=== PATIENT | male | born 1955 | race Caucasian/White ===

== ENCOUNTER 2023-04-04 12:38 | Inpatient (IN) | payer OTHER, SELFPAY ==
[2023-04-04] VITALS (11 sets, daily range): BP systolic 100–131; BP diastolic 59–77; PULSE 62–86; RESP 16–20; TEMP 37.2–38.2; O2SAT 90–97; BMI 19.3
--- NOTE | 2023-04-04 14:00 | CRLHL7_ITS ---
For Patients: As a result of the Cures Act, medical imaging exams and procedure reports are released immediately into your electronic medical record. You may view this report before your referring provider. If you have questions, please contact your health care provider. INDICATION: Fall. TECHNIQUE: Pelvis and right hip 3 views. COMPARISON: None. FINDINGS: There is an acute minimally displaced fracture of the right femoral neck. The femoral head remains normally aligned with the acetabulum. The hip joint spaces are preserved. The sacroiliac joints are normal in appearance. Soft tissues are unremarkable. IMPRESSION: Acute minimally displaced fracture of the right femoral neck. Dictated by Clemencia Cardenas MD @ 04/04/2023 4:01:36 PM (Electronically Signed)
--- NOTE | 2023-04-04 14:35 | ED.GENADULT ---
HPI - General Adult General Date Seen: 04/04/23 Chief complaint: Extremity Pain/Injury, Lower Stated complaint: Fall, R hip injury Time Seen by Provider: 04/04/23 14:23 Source: patient Mode of arrival: wheelchair Limitations: no limitations History of Present Illness HPI narrative: Patient is a 67-year-old male who says he was walking outside and slipped on some mud today landing hard on his right hip. He had to crawl back home to call a friend take him in but he did come in by private car. Complains of pain in the right hip and inability to bear weight. He denies hitting his head. No neck or back trauma. Denies chest or abdominal pain. He has a scrape on his right elbow but says he is moving it without difficulty, no significant swelling. He does not take any anticoagulation, last ate at about 9:00 a.m. this morning. Medications include chlorthalidone and potassium as well as some xmey-hsv-lyrjefk supplements. He denies allergies aside from not liking way codeine makes him feel. He does not smoke or drink. Related Data Allergies Allergy/AdvReac Type Severity Reaction Status Date / Time codeine Allergy Unknown Verified 04/04/23 13:16 Review of Systems Status of ROS: Reports: 10 or more systems reviewed and unremarkable except as noted in History and below Exam Narrative: Exam Narrative: Vital signs as noted above. In general, an alert, well-appearing patient. Head: Normocephalic, atraumatic. Eyes: Pupils are equal reactive. Extraocular movements are full. Conjunctivae are normal. ENT: Mucous membranes are moist. Throat is normal. Neck: Supple without lymphadenopathy. Heart: Regular rate and rhythm. No murmur or rub. Lungs: Clear bilaterally. No increased work of breathing, crackles or wheezes. Abdomen: Soft and nontender. No organomegaly. Extremities: Well perfused. No edema. No calf tenderness. Pulses intact. No shortening or rotation. Range of motion not tested. Small bruise and abrasion noted right elbow, no bony tenderness or edema, full range of motion. Neurologic: Patient is alert and oriented to person and place. Speech is fluent. Face is symmetric. Moves all extremities equally. Affect: Normal. Skin: Warm and dry. Well perfused. Const: Vital Signs, click to edit/add: Vital Signs - 24 hr 04/04/23 13:14 04/04/23 14:47 Temperature 98.9 F Pulse Rate [Right Pulse Oximeter] 62 86 Respiratory Rate 20 18 Blood Pressure [Ri ght Upper Arm] 131/77 124/75 Pulse Oximetry 97 96 Oxygen Delivery Me thod Room Air Room Air Documenting provider has reviewed patient's vital signs: yes Course Course Hospital Course: Patient had x-rays of the right hip which by my review show a femoral neck fracture. I have ordered labs, EKG in anticipation of OR. These are pending. Will give some morphine for pain as he is complaining quite a bit of pain at this time. Final radiology read as follows: Patient discussed with Orthopedics. Plan will be admission to the hospital for surgery tomorrow. His metabolic panel has returned and is notable for potassium of 3.5, CO2 of 33, glucose 124. AST is 40, ALT 34. LFTs otherwise normal. Cbc pending. Coags normal. EKG by my review showed a normal sinus rhythm, ventricular rate of 82 beats per minute. No acute changes. Vital Signs Vital signs: Initial Vital Signs Temperature 98.9 F 04/04/23 13:14 Temperature Source Temporal Artery Scan 04/04/23 13:14 Pulse Rate 62 04/04/23 13:14 Pulse Rhythm Regular 04/04/23 13:14 Pulse Strength 3+ Normal 04/04/23 13:14 Respiratory Rate 20 04/04/23 13:14 Blood Pressure 131/77 04/04/23 13:14 Blood Pressure Mean 95 04/04/23 13:14 Blood Pressure Position Sitting 04/04/23 13:14 Pulse Oximetry 97 04/04/23 13:14 Oxygen Delivery Method Room Air 04/04/23 13:14 Vital Signs Temperature 98.9 F 04/04/23 13:14 Pulse Rate 62 04/04/23 13:14 Respiratory Rate 20 04/04/23 13:14 Blood Pressure 131/77 04/04/23 13:14 Pulse Oximetry 97 04/04/23 13:14 Oxygen Delivery Method Room Air 04/04/23 13:14 Temperature 98.9 F 04/04/23 13:14 Pulse Rate 86 04/04/23 14:47 Respiratory Rate 18 04/04/23 14:47 Blood Pressure 124/75 04/04/23 14:47 Pulse Oximetry 96 04/04/23 14:47 Oxygen Delivery Method Room Air 04/04/23 14:47 Medical Decision Making Lab Data Labs: Lab Results 04/04/23 Range/Units 14:40 INR 1.07 (0.91-1.10) APTT 31 (23-33) Seconds Sodium 138 (135-149) mmol/L Potassium 3.5 L (3.6-5.1) mmol/L Chloride 97 (96-114) mmol/L Carbon Dioxide 33 H (20-32) mmol/L BUN 19 (7-30) mg/dL Creatinine 0.9 (0.5-1.5) mg/dL Estimated Creat Clear 67.09 Estimated GFR 92 ml/min Glucose 124 H (60-115) mg/dL Calcium 10.3 (8.4-10.6) mg/dL Total Bilirubin 1.1 (0.1-1.5) mg/dL Direct Bilirubin 0.2 (0.0-0.5) mg/dL AST 40 H (12-35) U/L ALT 34 (4-50) U/L Alkaline Phosphatase 50 (40-150) U/L Total Protein 8.1 (6.0-8.3) g/dL Albumin 5.2 H (3.3-5.0) g/dL Discharge Plan Discharge Clinical Impression: Closed fracture of right hip Patient Disposition: Admitted As Inpatient Condition: Stable
[2023-04-04] MEDS: ONDANSETRON 2 MG/ML inj 4 MG IVP (14:40)
[2023-04-04] MEDS: MORPHINE 4 MG/ML INJ IVP ×2 (14:41→16:18)
[2023-04-04 14:52] LABS: Hematocrit 43.4 % (37.0-53.0); Hemoglobin* 14.7 gm/dL (13.5-17.5); Immature Granulocytes Pct Auto 1.4 %; Lymphocytes Percent Auto 5.9 % (20-44); Mean Corpuscular HGB Conc 34 gm/dL (32-36); Mean Corpuscular Hemoglobin 30 pg (26-34); Mean Corpuscular Volume 90 fL (80-100); Monocytes Percent Auto 2.2 % (0.0-11.0); Neutrophils Percent Auto 90.5 % (42.0-72.0); Platelet Count* 146 K/uL (140-440); RDW Coefficient of Variation % 12.5 % (11.5-15.5); Red Blood Count 4.85 m/uL (4.30-5.90); White Blood Count* 11.74 K/uL (4.50-11.00)
[2023-04-04 15:03] LABS: Chloride* 97 mmol/L (96-114)
[2023-04-04 15:04] LABS: Albumin* 5.2 g/dL (3.3-5.0); Potassium* 3.5 mmol/L (3.6-5.1); Sodium* 138 mmol/L (135-149)
[2023-04-04 15:07] LABS: Alanine Aminotransferase* 34 U/L (4-50); Alkaline Phosphatase* 50 U/L (40-150); Aspartate Amino Transferase* 40 U/L (12-35); Bilirubin Direct* 0.2 mg/dL (0.0-0.5); Bilirubin Total* 1.1 mg/dL (0.1-1.5); Blood Urea Nitrogen* 19 mg/dL (7-30); Calcium* 10.3 mg/dL (8.4-10.6); Carbon Dioxide* 33 mmol/L (20-32); Creatinine* 0.9 mg/dL (0.5-1.5); Est. Creatinine Clearance* 67.09; Estimated Glomerular Filt Rate 92 ml/min; Glucose* 124 mg/dL (60-115); Total Protein* 8.1 g/dL (6.0-8.3)
[2023-04-04 15:27] LABS: INR 1.07 (0.91-1.10); Partial Thromboplastin Time* 31 Seconds (23-33); Prothrombin Time 14.6 Seconds
--- NOTE | 2023-04-04 16:00 | ED.NURSE ---
report called, pt will transfer to room 257 via cart with belongings.
[2023-04-04 16:10] LABS: Slide Review Reflex Yes
[2023-04-04 16:11] LABS: Slide Review Acceptable Review (Acceptable)
--- NOTE | 2023-04-04 17:37 | P.IMHP_ITS ---
Hospitalist- H&P: HPI History of Present Illness Time Seen by Provider: 17:35 Date Seen: 04/04/23 Chief complaint: Fall, R hip injury Narrative: Dave Rowe is a 67 year old male with h/o HTN who slipped today landing on his right hip on the cement sidewalk. He put in a large landscaping area on Tuesday. He went out this morning to check on it and slipped on a patch of mud from recent rains. Fell onto cement and was unable to get up or walk on it. He crawled to house, but couldn't get up even one step out front of his house. Neighbor and mailman helped him into house, but he was still unable to move. So, his friend brought him to the ER. He felt he was shivering and freezing in ER. He denies any recent illness and has been in his usual state of health. Review of Systems Status of ROS: Reports: 10 or more systems reviewed and unremarkable except as noted in History and below Narrative: Stays active, but doesn't do much that is very intense due to h/o back pain. Const: Reports: chills Cardio: Denies: chest pain or shortness of breath with exertion Resp: Denies: shortness of breath GI: Denies: abdominal pain or blood in stool : Reports: other (occasional small amounts of urinary incontinence) Musculo: Reports: back pain [facility] Medical History (Updated 04/04/23 @ 19:14 by Sharon Johnston MD) Hypertension ?I10 - Essential (primary) hypertension (ICD-10) Low back pain ?M54.50 - Low back pain, unspecified (ICD-10) C. difficile colitis (~2013) ?A04.72 - Enterocolitis due to Clostridium difficile, not specified as recurrent (ICD-10) Colon polyps ?K63.5 - Polyp of colon (ICD-10) Tinnitus ?H93.19 - Tinnitus, unspecified ear (ICD-10) Sensorineural hearing loss (SNHL) of both ears ?H90.3 - Sensorineural hearing loss, bilateral (ICD-10) Impaired fasting glucose ?R73.01 - Impaired fasting glucose (ICD-10) BPH w urinary obs/LUTS ?N40.1 - Benign prostatic hyperplasia with lower urinary tract symptoms (ICD- 10) ?N13.8 - Other obstructive and reflux uropathy (ICD-10) Surgical History (Updated 04/04/23 @ 16:53 by Sharon Johnston MD) Hx of appendectomy (~1975) ?Z90.49 - Acquired absence of other specified parts of digestive tract (ICD- 10) H/O colonoscopy ?Z98.890 - Other specified postprocedural states (ICD-10) Family History (Updated 04/04/23 @ 16:56 by Sharon Johnston MD) Mother Polymyalgia rheumatica Arthritis Cataract Brother In good health Brother In good health Father Alcohol dependence Tobacco use Social History (Updated 04/04/23 @ 17:48 by Sharon Johnston MD) Narrative: Smoked an average of 2.5 packs per day for 7 years from 1969 to 1976. Never used smokeless tobacco. Denies alcohol use. Denies recreational drug use. 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 What is your current living situation: I presently have a place to live Problems where you live: no known problems Problems where you live details: none In the past 12 months, utilities in danger of being shut off: no In the past 12 mos, have been you worried that your food would run out before you had money to buy more?: never true In the past 12 mos, the food you bought just didn't last and you didn't have money to buy more?: never true Highest level of school completed/degree received: Bachelor's degree Smoking Status: Former smoker How often do you have a drink containing alcohol: monthly or less Alcohol type: beer How many standard drinks containing alcohol do you have on a typical day: 1 or 2 How often do you have six or more drinks on one occasion: Never AUDIT-C Alcohol total score: 1 Non-prescribed substance use: denies use Caffeine: Yes How often does anyone, including family, friends and others, physically hurt you : How often does anyone, including family, friends and others, insult or talk down to you: How often does anyone, including family, friends and others, threaten you with harm: How often does anyone, including family, friends and others, scream or curse at you: service: No Meds Home Medications and Allergies Home Medications Medication Instructions Recorded Confirmed Type gmfdqgs-zrvpututj-tlalcm-ixwtc-cphdhsbm-qpinb-invertase 1 cap PO TIDWMEAL 04/04/23 04/04/23 History 220 mg capsule chlorthalidone 25 mg tablet 25 mg PO DAILY 04/04/23 04/04/23 History glucosamine-chondroitin 500 mg-400 2 tab PO DAILY 04/04/23 04/04/23 History mg tablet (Cidaflex) potassium chloride 10 mEq 10 meq PO DAILY 04/04/23 04/04/23 History tablet,extended release(part/cryst) Allergies Allergy/AdvReac Type Severity Reaction Status Date / Time codeine Allergy Unknown Hallucinati Verified 04/04/23 16:50 ng cat dander Allergy Verified 04/04/23 16:50 mold Allergy Verified 04/04/23 16:50 pollen extracts Allergy Verified 04/04/23 16:50 tree nut AdvReac Mild Diarrhea Verified 04/04/23 16:50 Exam Narrative: Exam Narrative: General: [No acute distress.] [Awake alert oriented x3.] Tall and thin. HEENT: [Normocephalic atraumatic], [pupils equally round and reactive to light and accommodation]. Oropharynx [clear]. Mucous membranes are [moist]. [No cervical lymphadenopathy, thyromegaly or carotid bruits]. No JVD. Cardiovascular: [Regular rate and rhythm]. [No murmurs, gallops, or rubs]. Chest: No increased work of breathing. [Clear to auscultation bilaterally. No crackles or wheezes]. Abdomen: Bowel sounds [present]. [Soft, nondistended, nontender.] [No hepatosplenomegaly or masses]. Extremities: Mild shortening and internal rotation of RLE. [No] edema, [no cyanosis or clubbing]. Skin: [No jaundice,] [no pallor,] [no rashes]. Const: Vital Signs, click to edit/add: Vital Signs - 24 hr 04/04/23 13:14 04/04/23 14:47 04/04/23 15:05 Temperature 98.9 F Pulse Rate 79 Pulse Rate [Left P ulse Oximeter] Pulse Rate [Right Pulse Oximeter] 62 86 Respiratory Rate 20 18 Blood Pressure 125/76 Blood Pressure [Ri ght Arm] Blood Pressure [Ri ght Upper Arm] 131/77 124/75 Pulse Oximetry 97 96 92 Oxygen Delivery Me thod Room Air Room Air 04/04/23 15:06 04/04/23 15:30 04/04/23 15:32 Temperature Pulse Rate 82 79 78 Pulse Rate [Left P ulse Oximeter] Pulse Rate [Right Pulse Oximeter] Respiratory Rate Blood Pressure 130/73 Blood Pressure [Ri ght Arm] Blood Pressure [Ri ght Upper Arm] Pulse Oximetry 90 92 91 Oxygen Delivery Me thod 04/04/23 16:00 04/04/23 16:26 04/04/23 16:26 Temperature 100.8 F H Pulse Rate 77 Pulse Rate [Left P ulse Oximeter] 79 Pulse Rate [Right Pulse Oximeter] Respiratory Rate 16 16 Blood Pressure Blood Pressure [Ri ght Arm] 120/68 Blood Pressure [Ri ght Upper Arm] Pulse Oximetry 92 91 91 Oxygen Delivery Me thod Room Air Room Air Documenting provider has reviewed patient's vital signs: yes Hospitalist - H&P: Result Labs Labs: Short CBC 04/04/23 Range/Units 14:40 WBC 11.74 H (4.50-11.00) K/uL Hgb 14.7 (13.5-17.5) gm/dL Hct 43.4 (37.0-53.0) % Plt Count 146 (140-440) K/uL BMP 04/04/23 14:40 Sodium 138 Potassium 3.5 L Chloride 97 Carbon Dioxide 33 H BUN 19 Creatinine 0.9 Glucose 124 H Calcium 10.3 Liver Function 04/04/23 Range/Units 14:40 Total Bilirubin 1.1 (0.1-1.5) mg/dL Direct Bilirubin 0.2 (0.0-0.5) mg/dL AST 40 H (12-35) U/L ALT 34 (4-50) U/L Alkaline Phosphatase 50 (40-150) U/L Albumin 5.2 H (3.3-5.0) g/dL Ordering Physician: Ariane Yan M.D. Date of Service: 04/04/23 Procedure(s): XR hip RT min 2V Accession Number(s): [id number] cc: Ariane Yan M.D.; Campbell Escoto M.D.~ For Patients: As a result of the Cures Act, medical imaging exams and procedure reports are released immediately into your electronic medical record. You may view this report before your referring provider. If you have questions, please contact your health care provider. INDICATION: Fall. TECHNIQUE: Pelvis and right hip 3 views. COMPARISON: None. FINDINGS: There is an acute minimally displaced fracture of the right femoral neck. The femoral head remains normally aligned with the acetabulum. The hip joint spaces are preserved. The sacroiliac joints are normal in appearance. Soft tissues are unremarkable. IMPRESSION: Acute minimally displaced fracture of the right femoral neck. Dictated by Clemencia Cardenas MD @ 04/04/2023 4:01:36 PM (Electronically Signed) Assessment and Plan Assessment and plan (1) Closed fracture of right hip: Problem comment: - minimally displaced fracture of the right femoral neck - ortho aware and surgery is planned for tomorrow early afternoon - NPO after MN. He is overall healthy with Mets greater than 4. No further workup is needed prior to surgery. Status: Acute (2) Hypokalemia: Problem comment: Secondary to chlorthalidone use. Patient is also on oral potassium supplementation daily. Continue this and given extra dose this evening. Recheck in morning. Status: Acute (3) Hypertension: Problem comment: Continue chlorthalidone Status: Chronic (4) C. difficile colitis: Problem comment: - 2014. Has not had a recurrence, but notes BMs have rarely been normal since. - patient will be getting antibiotics intraoperatively. Start lactobacillus t.i.d.. Status: Inactive (5) BPH w urinary obs/LUTS: Problem comment: - occasional urinary incontinence - monitor for urinary retention with opioids Status: Chronic Plan Start pain medication and senna for bowel regimen with opioids. Hold off on VTE prophylaxis until after surgery.
[2023-04-04] MEDS: POTASSIUM BICARB 25 MEQ EFFERVESCENT TAB PO (19:44)
[2023-04-04] MEDS: LACTOBACILLUS ACIDOPHILUS 1 TABLET 1 TAB PO (19:45)
[2023-04-04] MEDS: MORPHINE 2 MG/ML inj 4 MG IVP ×2 (19:46→23:20)
[2023-04-04] MEDS: SODIUM CHLORIDE 0.9 % (FLUSH) 10 ML SYRINGE 5 ML IVF (19:47)
--- NOTE | 2023-04-04 22:51 | PC.NURSE ---
End of Shift: Pt admitted to Med Surg via ED d/t fall outside at home resulting in right hip fracture. Surgery scheduled for tomorrow at 1330. Pt reports pain between 5-6/10, well-controlled with IV morphine and ice pack. Whitman catheter placed d/t pt's hx of difficulty voiding r/t previous enlarged prostate per pt. MD order to place whitman catheter, placement successful, pt tolerated well with some discomfort. Whitman patent and draining well. Pt NWB d/t hip fracture. Tolerating regular diet well, NPO ordered after midnight.
[2023-04-04] MEDS: ACETAMINOPHEN 325 MG TABLET 650 MG PO (23:19)
[2023-04-05] VITALS (23 sets, daily range): BP systolic 95–117; BP diastolic 54–82; PULSE 65–88; RESP 16–18; TEMP 36.8–38.7; O2SAT 91–100
[2023-04-05] MEDS: MORPHINE 2 MG/ML inj 4 MG IVP ×3 (02:45→10:34)
[2023-04-05] MEDS: SODIUM CHLORIDE 0.9 % (FLUSH) 10 ML SYRINGE 5 ML IVF ×3 (02:46→08:58)
--- NOTE | 2023-04-05 05:54 | PC.NURSE ---
Shift note: Pt is on bedrest. Pain level has been rated at 6 maximum. Icepack and PRN medication given. Alert and oriented, vitally stable. O2 desaturated to 88 when sleeping. Pt has been maintained on NPO at 0000 for possible surgery today.
[2023-04-05 06:39] LABS: Basophils Absolute Auto 0.01 K/uL (0.00-0.30); Basophils Percent Auto 0.1 % (0.0-3.0); Eosinophils Absolute Auto 0.08 K/uL (0.00-0.50); Eosinophils Percent Auto 0.8 % (0.0-7.0); Immature Granulocytes Abs Auto 0.04 K/uL (0.00-0.30); Immature Granulocytes Pct Auto 0.4 %; Lymphocytes Percent Auto 7.7 % (20-44); Mean Corpuscular HGB Conc 34 gm/dL (32-36); Mean Corpuscular Hemoglobin 31 pg (26-34); Mean Corpuscular Volume 89 fL (80-100); Monocytes Percent Auto 2.7 % (0.0-11.0); Neutrophils Percent Auto 88.3 % (42.0-72.0); Platelet Count* 108 K/uL (140-440); RDW Coefficient of Variation % 12.7 % (11.5-15.5); Red Blood Count 4.25 m/uL (4.30-5.90); White Blood Count* 9.52 K/uL (4.50-11.00)
[2023-04-05 06:43] LABS: Slide Review Reflex No
[2023-04-05 06:52] LABS: Chloride* 98 mmol/L (96-114); Potassium* 3.5 mmol/L (3.6-5.1); Sodium* 136 mmol/L (135-149)
[2023-04-05 06:55] LABS: Blood Urea Nitrogen* 20 mg/dL (7-30); Carbon Dioxide* 35 mmol/L (20-32); Est. Creatinine Clearance* 67.09; Estimated Glomerular Filt Rate 81 ml/min
[2023-04-05 06:56] LABS: Calcium* 9.1 mg/dL (8.4-10.6); Glucose* 117 mg/dL (60-115)
[2023-04-05] MEDS: ACETAMINOPHEN 325 MG TABLET 650 MG PO ×2 (09:06→17:49)
--- NOTE | 2023-04-05 09:06 | CRLHL7_ITS ---
For Patients: As a result of the Cures Act, medical imaging exams and procedure reports are released immediately into your electronic medical record. You may view this report before your referring provider. If you have questions, please contact your health care provider. INDICATION: FEVER TECHNIQUE: Chest 1 view COMPARISON: None FINDINGS: Cardiac silhouette is enlarged. There is mild tortuosity of the descending thoracic aorta. No infiltrate or edema. No effusion or pneumothorax. IMPRESSION: No acute findings. Dictated by Ye Stauffer MD @ 04/05/2023 10:05:28 AM (Electronically Signed)
[2023-04-05] MEDS: POTASSIUM CHLORIDE 10 MEQ/100 ML PIGGYBACK 100 MEQ IVPB ×2 (09:30→10:36)
--- NOTE | 2023-04-05 10:01 | P.IMPN_ITS ---
Progress Note: A&P Assessment and plan (1) Closed fracture of right hip: Problem details: - minimally displaced fracture of the right femoral neck - ortho aware and surgery is planned for 04/05 - Dave is overall healthy with Mets greater than 4, no history of anesthetic or surgical complications Status: Acute (2) Fever: Problem details: - noted 04/04 and 04/05; reassuring exam, CXR and CBC, mild elevated in pro- calcitonin - ddx: fracture, viral illness, UTI vs other bacterial illness - UA pending, Blood cultures obtained, continue to follow - anesthesia aware Status: Acute (3) Hypokalemia: Problem details: - likely iatrogenic (on Chlorthalidone) - replace and follow Status: Acute (4) Hypertension: Problem details: - continue Chlorthalidone with holding parameters given lower BPs Status: Chronic (5) C. difficile colitis: Problem details: - history of this in 2013. Has not had a recurrence, but notes BMs have rarely been normal since - patient will be getting antibiotics intraoperatively. Start lactobacillus TID Status: Inactive Plan - per above Subjective Date Seen: 04/05/23 Interval history: Bubba had a fever this morning, no focal symptoms or concerns for hospitalist team. He is having surgery with Dr. Pabon today. No history of surgical or anesthetic complications. Exam Narrative: Exam Narrative: GEN: Alert and oriented, sitting up in bed and speaking in full sentences. Nontoxic HEENT: EOMIs bilaterally, no scleral icterus CV: RRR, No concerning murmurs, no carotid bruits R: LCTA bilaterally without concerning wheezing or rales. Air movement adequate Ab: soft, nontender, tolerates exam well Skin: No concerning skin lesions or rashes on exposed skin Neuro: Nonfocal Psych: Appropriate Const: Vital Signs, click to edit/add: Vital Signs - 24 hr 04/04/23 13:14 04/04/23 14:47 04/04/23 15:05 Temperature 98.9 F Pulse Rate 79 Pulse Rate [Left P ulse Oximeter] Pulse Rate [Right Pulse Oximeter] 62 86 Respiratory Rate 20 18 Blood Pressure 125/76 Blood Pressure [Ri ght Arm] Blood Pressure [Ri ght Upper Arm] 131/77 124/75 Pulse Oximetry 97 96 92 Oxygen Delivery Me thod Room Air Room Air 04/04/23 15:06 04/04/23 15:30 04/04/23 15:32 Temperature Pulse Rate 82 79 78 Pulse Rate [Left P ulse Oximeter] Pulse Rate [Right Pulse Oximeter] Respiratory Rate Blood Pressure 130/73 Blood Pressure [Ri ght Arm] Blood Pressure [Ri ght Upper Arm] Pulse Oximetry 90 92 91 Oxygen Delivery Me thod 04/04/23 16:00 04/04/23 16:26 04/04/23 16:26 Temperature 100.8 F H Pulse Rate 77 Pulse Rate [Left P ulse Oximeter] 79 Pulse Rate [Right Pulse Oximeter] Respiratory Rate 16 16 Blood Pressure Blood Pressure [Ri ght Arm] 120/68 Blood Pressure [Ri ght Upper Arm] Pulse Oximetry 92 91 91 Oxygen Delivery Me thod Room Air Room Air 04/04/23 18:50 04/04/23 19:00 04/04/23 23:00 Temperature 100.1 F H Pulse Rate Pulse Rate [Left P ulse Oximeter] 76 Pulse Rate [Right Pulse Oximeter] Respiratory Rate 16 16 Blood Pressure Blood Pressure [Ri ght Arm] 113/69 Blood Pressure [Ri ght Upper Arm] Pulse Oximetry 93 91 Oxygen Delivery Me thod Room Air 04/04/23 23:00 04/05/23 03:00 04/05/23 07:26 Temperature 99.7 F H 98.7 F 99.2 F Pulse Rate Pulse Rate [Left P ulse Oximeter] 78 74 80 Pulse Rate [Right Pulse Oximeter] Respiratory Rate 16 18 18 Blood Pressure Blood Pressure [Ri ght Arm] 100/59 L 102/59 L 113/54 L Blood Pressure [Ri ght Upper Arm] Pulse Oximetry 90 91 92 Oxygen Delivery Me thod Room Air Room Air Room Air 04/05/23 09:06 04/05/23 09:45 Temperature 101.6 F H 99.2 F Pulse Rate Pulse Rate [Left P ulse Oximeter] Pulse Rate [Right Pulse Oximeter] Respiratory Rate Blood Pressure Blood Pressure [Ri ght Arm] Blood Pressure [Ri ght Upper Arm] Pulse Oximetry Oxygen Delivery Me thod Labs Labs: Laboratory Results - last 24 hr 04/04/23 04/05/23 14:40 06:15 WBC 11.74 H 9.52 RBC 4.85 4.25 L Hgb 14.7 13.0 L Hct 43.4 38.0 MCV 90 89 MCH 30 31 MCHC 34 34 RDW Coeff of Alec 12.5 12.7 Plt Count 146 108 L Neut % (Auto) 90.5 H 88.3 H Lymph % (Auto) 5.9 L 7.7 L Sanborn % (Auto) 2.2 2.7 Eos % (Auto) 0.0 0.8 Baso % (Auto) 0.0 0.1 Neut # (Auto) 10.60 H 8.40 H Lymph # (Auto) 0.70 L 0.70 L Sanborn # (Auto) 0.30 0.30 Eos # (Auto) 0.00 0.08 Baso # (Auto) 0.00 0.01 Diff Slide Review Acceptable Review INR 1.07 APTT 31 Sodium 138 136 Potassium 3.5 L 3.5 L Chloride 97 98 Carbon Dioxide 33 H 35 H BUN 19 20 Creatinine 0.9 1.0 Estimated Creat Clear 67.09 67.09 Estimated GFR 92 81 Glucose 124 H 117 H Calcium 10.3 9.1 Total Bilirubin 1.1 Direct Bilirubin 0.2 AST 40 H ALT 34 Alkaline Phosphatase 50 Total Protein 8.1 Albumin 5.2 H
[2023-04-05 10:41] LABS: Procalcitonin* 0.76 ng/mL (<0.50)
[2023-04-05] MEDS: LACTOBACILLUS ACIDOPHILUS 1 TABLET 1 TAB PO ×2 (11:27→17:49)
[2023-04-05 12:42] LABS: Appearance Urine Slightly Cloudy (Clear); Bilirubin Urine 1+ (Negative); Blood Urine 3+ (Negative); Color Urine Amber (Yellow); Glucose Urine Negative (Negative); Ketones Urine 3+ (Negative); Leukocyte Esterase Urine Negative (Negative); Nitrite Urine Positive (Negative); Protein Urine 2+ (Negative); Specific Gravity Urine 1.015 (1.000-1.030); pH Urine 8.5 (5.0-8.5)
[2023-04-05 12:52] LABS: Bacteria Urine Few; RBC Urine 0-2 (0-2); Squamous Epithelial Cell Urine Few (None-Few); WBC Urine 25-50 (0-5)
--- NOTE | 2023-04-05 13:30 | CRLHL7_ITS ---
For Patients: As a result of the Cures Act, medical imaging exams and procedure reports are released immediately into your electronic medical record. You may view this report before your referring provider. If you have questions, please contact your health care provider. Indication: ORIF RT Hip/Femur Technique: Three fluoroscopic images of the right hip. Fluoroscopic time 92.9 seconds. IMPRESSION: Fluoroscopic guidance for ORIF right femoral neck fracture. Dictated by Ye Stauffer MD @ 04/06/2023 10:44:27 AM (Electronically Signed)
--- NOTE | 2023-04-05 14:45 | W.PM.NB ---
Nerve Block Nerve Block Time Seen by Provider: 14:39 Date Seen: 04/05/23 Type of block requested by surgeon for post-operative analgesia: KINGS/LFCN Side: right Time out performed: Yes Verification of patient name: Yes Verification of date of : Yes Site marking: site marked Name of person performing procedure: Ganesh Continuous monitoring Was continuous monitoring of O2 sat, B/P, brand analyst, recorded every 15 minutes?: Yes Procedure Checklist: sterile prep, needles and gloves Ultrasound guided. Images saved: Yes Medications given in 5ml increments after negative aspiration: Ropivicaine %: 0.5 mL: 30 Needle gauge: 20 Decadron (mg): 10 Precedex (mcg): 25 Patient tolerated procedure well: Yes Additional comments: Needle noted below psoas tendon needle noted adjacent to LFCN Block Charges Block Charge (with Pro Fee): Other Periph Nerve Block Use of Ultrasound Machine for Block: Yes- US Guidance/pain block
--- NOTE | 2023-04-05 15:58 | W.ANESCHARGE ---
Anesthesia Charges Start Date/Time Anesthesia Start Date: 04/05/23 Anesthesia Start Time: 14:36 Stop Date/Time Anesthesia Stop Date: 04/05/23 Anesthesia Stop Time: 15:58 Summary Emergency: LICENSED AND CERTIFIED MIDWIFE
--- NOTE | 2023-04-05 16:00 | P.ORPRC_ITS ---
Procedure Note Date of procedure: 04/05/23 Procedure: PREOPERATIVE DIAGNOSIS: Minimally displaced right femoral neck fracture POSTOPERATIVE DIAGNOSIS: Minimally displaced right femoral neck fracture NAME OF OPERATION: Right hip fracture ORIF SURGEON: Baljinder Pabon MD LABORER WHARF: PAULA Toscano IMPLANTS: Synthes Femoral Neck System 130 degree, 100 mm bolt, 100 mm derotation screw, 42 mm locking screw ANESTHESIA: Spinal ESTIMATED BLOOD LOSS: 0 mL COMPLICATIONS: None SPECIMENS: None DRAINS: None PREOPERATIVE ANTIBIOTICS: Ancef 1 g INDICATIONS: The patient is a 67-year-old male who fell, sustaining a minimally displaced right femoral neck fracture.. They were admitted for workup and care. They have been medically cleared for surgery. The risks, benefits and expected outcomes were discussed in detail. These included but were not limited to: Infection, bleeding, injury to blood vessel or nerve, venous thromboembolism. All questions were answered to their satisfaction. Use of an physiotherapist's assistant was necessary for patient positioning and safety, soft tissue retraction and closure, dressing application, and transfer of the patient to and from the hospital bed to the fracture table. PROCEDURE: Spinal anesthesia was administered. The patient was placed supine on the operating room table. The lower extremity was prepped and draped in the usual sterile fashion. The reduction was obtained with internal rotation, confirmed with the image intensifier. A lateral incision was made over the flare of the greater trochanter. Subcutaneous dissection was made with the Mccarty elevator to the lateral cortex of the femur. The 130 degree guide was placed over the lateral cortex of the femur. A guide pin was placed through the lateral cortex. Its placement was estimated with the image intensifier. It was placed in the center of the femoral head on both views. It was taken to the subchondral bone. Length was measured, the reamer was used. The bolt and 1 hole sideplate were placed. The drill was used for the locking screw and the locking screw was placed. Finally, the drill for the derotation screw was used and the 100 mm derotation screw was placed. This construct was imaged with the C-arm and was felt to be well placed, with an excellent reduction. The wound was irrigated with normal saline. The IT band was closed with an 0 Vicryl in an interrupted [id number] fashion. The subcutaneous tissues were reapproximated with a 2-0 Vicryl. Skin was closed with a running 3-0 Monocryl in a subcuticular fashion and glue. A dry dressing was applied. Sponge and needle counts were correct x2. The patient tolerated the procedure well. There were no apparent complications. They were carefully transferred to the hospital bed and taken to the postanesthesia care unit in satisfactory condition. PLAN: The patient will be mobilized with physical therapy. They will be toe- touch weight-bearing on the right lower extremity for 4-6 weeks. . Xarelto will be used for DVT prophylaxis. They will be discharged to home home once medically appropriate.
--- NOTE | 2023-04-05 16:01 | W.ANESCHARGE ---
Anesthesia Charges Start Date/Time Anesthesia Start Date: 04/05/23 Anesthesia Start Time: 14:36 Stop Date/Time Anesthesia Stop Date: 04/05/23 Anesthesia Stop Time: 15:58 Summary Emergency: TIME CHECKER
--- NOTE | 2023-04-05 16:08 | PM.ORCN ---
History of Present Illness HPI Date Seen: 04/05/23 Requesting physician: Joy Green Chief complaint: Fall, R hip injury Narrative: The patient is a 67-year-old community ambulator without assist. He fell sustaining a minimally displaced right femoral neck fracture. He was admitted for workup and definitive care. He has never injured this hip or had surgery previously. Review of Systems Narrative: The patient denies: Fever, night sweats, shaking chills, nausea, vomiting, diarrhea, chest pain, chest pressure, shortness of breath, no rash, no change in hearing or vision, no issues with bleeding or clotting [facility] Medical History Hypertension ?I10 - Essential (primary) hypertension (ICD-10) Low back pain ?M54.50 - Low back pain, unspecified (ICD-10) C. difficile colitis (~2013) ?A04.72 - Enterocolitis due to Clostridium difficile, not specified as recurrent (ICD-10) Colon polyps ?K63.5 - Polyp of colon (ICD-10) Tinnitus ?H93.19 - Tinnitus, unspecified ear (ICD-10) Sensorineural hearing loss (SNHL) of both ears ?H90.3 - Sensorineural hearing loss, bilateral (ICD-10) Impaired fasting glucose ?R73.01 - Impaired fasting glucose (ICD-10) BPH w urinary obs/LUTS ?N40.1 - Benign prostatic hyperplasia with lower urinary tract symptoms (ICD-10) ?N13.8 - Other obstructive and reflux uropathy (ICD-10) Surgical History Hx of appendectomy (~1975) ?Z90.49 - Acquired absence of other specified parts of digestive tract (ICD-10) H/O colonoscopy ?Z98.890 - Other specified postprocedural states (ICD-10) Family History Mother Polymyalgia rheumatica Arthritis Cataract Brother In good health Brother In good health Father Alcohol dependence Tobacco use Social History Narrative: Smoked an average of 2.5 packs per day for 7 years from 1970 to 1976. Never used smokeless tobacco. Denies alcohol use. Denies recreational drug use. 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 What is your current living situation: I presently have a place to live Problems where you live: no known problems Problems where you live details: none In the past 12 months, utilities in danger of being shut off: no In the past 12 mos, have been you worried that your food would run out before you had money to buy more?: never true In the past 12 mos, the food you bought just didn't last and you didn't have money to buy more?: never true Highest level of school completed/degree received: Bachelor's degree Smoking Status: Former smoker How often do you have a drink containing alcohol: monthly or less Alcohol type: beer How many standard drinks containing alcohol do you have on a typical day: 1 or 2 How often do you have six or more drinks on one occasion: Never AUDIT-C Alcohol total score: 1 Non-prescribed substance use: denies use Caffeine: Yes How often does anyone, including family, friends and others, physically hurt you: How often does anyone, including family, friends and others, insult or talk down to you: How often does anyone, including family, friends and others, threaten you with harm: How often does anyone, including family, friends and others, scream or curse at you: service: No Meds Home Medications and Allergies Home Medications Medication Instructions Recorded Confirmed Type cuiingz-yallfnmru-dsnlck-oscwj-fngtwkfh-zdnec-invertase 1 cap PO TIDWMEAL 04/04/23 04/04/23 History 220 mg capsule chlorthalidone 25 mg tablet 25 mg PO DAILY 04/04/23 04/04/23 History glucosamine-chondroitin 500 mg-400 2 tab PO DAILY 04/04/23 04/04/23 History mg tablet (Cidaflex) potassium chloride 10 mEq 10 meq PO DAILY 04/04/23 04/04/23 History tablet,extended release(part/cryst) Allergies Allergy/AdvReac Type Severity Reaction Status Date / Time codeine Allergy Unknown Hallucinati Verified 04/04/23 16:50 ng cat dander Allergy Verified 04/04/23 16:50 mold Allergy Verified 04/04/23 16:50 pollen extracts Allergy Verified 04/04/23 16:50 tree nut AdvReac Mild Diarrhea Verified 04/04/23 16:50 Ortho Exam Narrative Exam Narrative: The patient is alert and oriented x3, in no acute distress, they are able to converse in a normal speaking voice without obvious hearing loss and with nonlabored breathing. The skin about the right hip is intact and normal. There is no shortening or external rotation of the right lower extremity. CMS is intact. Const Vital Signs, click to edit/add: Vital Signs - 24 hr 04/04/23 16:26 04/04/23 16:26 04/04/23 18:50 Temperature 100.8 F H Pulse Rate Pulse Rate [Left Pulse Oximeter] 79 Respiratory Rate 16 16 Blood Pressure Blood Pressure [Right Arm] 120/68 Pulse Oximetry 91 91 93 Oxygen Delivery Method Room Air Room Air Oxygen Flow Rate 04/04/23 19:00 04/04/23 23:00 04/04/23 23:00 Temperature 100.1 F H 99.7 F H Pulse Rate Pulse Rate [Left Pulse Oximeter] 76 78 Respiratory Rate 16 16 16 Blood Pressure Blood Pressure [Right Arm] 113/69 100/59 L Pulse Oximetry 91 90 Oxygen Delivery Method Room Air Room Air Oxygen Flow Rate 04/05/23 03:00 04/05/23 07:26 04/05/23 09:06 Temperature 98.7 F 99.2 F 101.6 F H Pulse Rate Pulse Rate [Left Pulse Oximeter] 74 80 Respiratory Rate 18 18 Blood Pressure Blood Pressure [Right Arm] 102/59 L 113/54 L Pulse Oximetry 91 92 Oxygen Delivery Method Room Air Room Air Oxygen Flow Rate 04/05/23 09:45 04/05/23 11:26 04/05/23 15:51 Temperature 99.2 F 98.8 F 99.5 F Pulse Rate 83 Pulse Rate [Left Pulse Oximeter] 78 Respiratory Rate 16 16 Blood Pressure 117/75 Blood Pressure [Right Arm] 103/69 Pulse Oximetry 94 100 Oxygen Delivery Method Room Air Non Rebreather Mask Oxygen Flow Rate 5 04/05/23 15:55 04/05/23 16:00 Temperature Pulse Rate 74 65 Pulse Rate [Left Pulse Oximeter] Respiratory Rate 16 16 Blood Pressure 117/75 109/73 Blood Pressure [Right Arm] Pulse Oximetry 100 100 Oxygen Delivery Method Non Rebreather Mask Non Rebreather Mask Oxygen Flow Rate 5 2 Results Labs Labs: Laboratory Results - last 48 hr 04/04/23 04/05/23 04/05/23 14:40 06:15 06:51 WBC 11.74 H 9.52 RBC 4.85 4.25 L Hgb 14.7 13.0 L Hct 43.4 38.0 MCV 90 89 MCH 30 31 MCHC 34 34 RDW Coeff of Alec 12.5 12.7 Plt Count 146 108 L Neut % (Auto) 90.5 H 88.3 H Lymph % (Auto) 5.9 L 7.7 L [place] % (Auto) 2.2 2.7 Eos % (Auto) 0.0 0.8 Baso % (Auto) 0.0 0.1 Neut # (Auto) 10.60 H 8.40 H Lymph # (Auto) 0.70 L 0.70 L [place] # (Auto) 0.30 0.30 Eos # (Auto) 0.00 0.08 Baso # (Auto) 0.00 0.01 Diff Slide Review Acceptable Review INR 1.07 APTT 31 Sodium 138 136 Potassium 3.5 L 3.5 L Chloride 97 98 Carbon Dioxide 33 H 35 H BUN 19 20 Creatinine 0.9 1.0 Estimated Creat Clear 67.09 67.09 Estimated GFR 92 81 Glucose 124 H 117 H Calcium 10.3 9.1 Total Bilirubin 1.1 Direct Bilirubin 0.2 AST 40 H ALT 34 Alkaline Phosphatase 50 Total Protein 8.1 Albumin 5.2 H Procalcitonin 0.76 H Urine Color Urine Appearance Urine pH Ur Specific [place] Urine Protein Urine Glucose (UA) Urine Ketones Urine Blood Urine Nitrite Urine Bilirubin Urine Urobilinogen Ur Leukocyte Esterase Urine RBC Urine WBC Ur Squamous Epith Cells Urine Bacteria Lab Acknowledgement Test Added 04/05/23 12:10 WBC RBC Hgb Hct MCV MCH MCHC RDW Coeff of Alec Plt Count Neut % (Auto) Lymph % (Auto) [place] % (Auto) Eos % (Auto) Baso % (Auto) Neut # (Auto) Lymph # (Auto) [place] # (Auto) Eos # (Auto) Baso # (Auto) Diff Slide Review INR APTT Sodium Potassium Chloride Carbon Dioxide BUN Creatinine Estimated Creat Clear Estimated GFR Glucose Calcium Total Bilirubin Direct Bilirubin AST ALT Alkaline Phosphatase Total Protein Albumin Procalcitonin Urine Color Amanda A Urine Appearance Slightly Cloudy A Urine pH 8.5 Ur Specific [place] 1.015 Urine Protein 2+ A Urine Glucose (UA) Negative Urine Ketones 3+ A Urine Blood 3+ A Urine Nitrite Positive A Urine Bilirubin 1+ A Urine Urobilinogen 1.0 Ur Leukocyte Esterase Negative Urine RBC 0-2 Urine WBC 25-50 A Ur Squamous Epith Cells Few Urine Bacteria Few A Lab Acknowledgement Diagnostic results Additional Comments: An AP pelvis, AP and cross-table lateral view of the right hip show a minimally displaced right femoral neck fracture. There is minimal valgus impaction and minimal apex anterior angulation. There is no pre-existing hip joint arthritis, no obvious pathologic lesion. Assessment and Plan Assessment and plan (1) Closed fracture of right hip: Problem comment: - minimally displaced fracture of the right femoral neck - ortho aware and surgery is planned for 04/05 - Dave is overall healthy with Mets greater than 4, no history of anesthetic or surgical complications Status: Acute Total time spent: Total time spent is greater than 50% in coordination of care (as documented) at patient's floor/unit and/or counseling patient: (2) Fever: Problem comment: - noted 04/04 and 04/05; reassuring exam, CXR and CBC, mild elevated in pro-calcitonin - ddx: fracture, viral illness, UTI vs other bacterial illness - UA pending, Blood cultures obtained, continue to follow - anesthesia aware Status: Acute Total time spent: Total time spent is greater than 50% in coordination of care (as documented) at patient's floor/unit and/or counseling patient: (3) Hypokalemia: Problem comment: - likely iatrogenic (on Chlorthalidone) - replace and follow Status: Acute Total time spent: Total time spent is greater than 50% in coordination of care (as documented) at patient's floor/unit and/or counseling patient: (4) Hypertension: Problem comment: - continue Chlorthalidone with holding parameters given lower BPs Status: Chronic Total time spent: Total time spent is greater than 50% in coordination of care (as documented) at patient's floor/unit and/or counseling patient: (5) C. difficile colitis: Problem comment: - history of this in 2013. Has not had a recurrence, but notes BMs have rarely been normal since - patient will be getting antibiotics intraoperatively. Start lactobacillus TID Status: Inactive Total time spent: Total time spent is greater than 50% in coordination of care (as documented) at patient's floor/unit and/or counseling patient: Plan Assessment: Minimally displaced right femoral neck fracture Plan: I told the patient that his injury is best treated with fixation. He has been medically cleared for surgery. Therefore, we will plan to take him to the operating room today.
[2023-04-05] MEDS: PANCREALIPASE (12,38,60) CAP 1 CAP PO (17:49)
--- NOTE | 2023-04-05 18:39 | PC.NURSE ---
Pt alert and oriented. Pt on bed rest. VSS; with high temperature during?mid-morning.?Pt had pain ranging from 5-8 see EMAR for intervention. Pt had surgery for right hip brought down to OR at 1420. Pt returned from surgery at 1630. Pt awake and alert after returning. Pt had no complaints of pain. Dressing dry and intact. Pt tolerating regular diet well.?
[2023-04-05] MEDS: LACTATED RINGERS 1000 ML 1,000 ML 75 ML IV (20:07)
[2023-04-05] MEDS: SENNOSIDES 1 TAB TABLET 2 TAB PO (21:13)
[2023-04-05] MEDS: CEFAZOLIN 1 GM in 0.9 % SODIUM CHLORIDE Mini-bag 100 ML IVPB (22:34)
[2023-04-06] VITALS (7 sets, daily range): BP systolic 100–123; BP diastolic 66–76; PULSE 64–68; RESP 16–18; TEMP 36.6–37.2; O2SAT 93–98
[2023-04-06] MEDS: ACETAMINOPHEN 325 MG TABLET 650 MG PO ×5 (01:38→23:25)
--- NOTE | 2023-04-06 05:23 | PC.NURSE ---
Shift note: Pt is doing well from surgery. Has been in bedrest throughout the shift. Pt denied pain. Icepack applied to the incision site. Able to wiggle the right toes and move whole right lower extremity from side to side but still feel numb. No post op complication noted. Dressing appeared clean and dry. Alert and oriented. Vitally stable.
[2023-04-06] MEDS: CEFAZOLIN 1 GM in 0.9 % SODIUM CHLORIDE Mini-bag 100 ML IVPB ×3 (06:23→23:25)
[2023-04-06 06:44] LABS: Basophils Percent Auto 0.1 % (0.0-3.0); Eosinophils Percent Auto 0.1 % (0.0-7.0); Hematocrit 37.4 % (37.0-53.0); Hemoglobin* 12.7 gm/dL (13.5-17.5); Immature Granulocytes Pct Auto 0.5 %; Lymphocytes Percent Auto 5.1 % (20-44); Mean Corpuscular HGB Conc 34 gm/dL (32-36); Mean Corpuscular Hemoglobin 30 pg (26-34); Mean Corpuscular Volume 89 fL (80-100); Monocytes Percent Auto 2.2 % (0.0-11.0); Platelet Count* 110 K/uL (140-440); RDW Coefficient of Variation % 12.5 % (11.5-15.5)
[2023-04-06 06:54] LABS: Slide Review Reflex No
[2023-04-06 07:07] LABS: Chloride* 98 mmol/L (96-114); Sodium* 137 mmol/L (135-149)
[2023-04-06 07:10] LABS: Blood Urea Nitrogen* 22 mg/dL (7-30); Carbon Dioxide* 32 mmol/L (20-32); Creatinine* 0.8 mg/dL (0.5-1.5); Est. Creatinine Clearance* 67.09; Estimated Glomerular Filt Rate 96 ml/min
[2023-04-06 07:11] LABS: Calcium* 9.1 mg/dL (8.4-10.6); Glucose* 152 mg/dL (60-115)
[2023-04-06 07:27] LABS: Procalcitonin* 0.62 ng/mL (<0.50)
[2023-04-06] MEDS: PANCREALIPASE (12,38,60) CAP 1 CAP PO (08:24)
[2023-04-06] MEDS: OXYCODONE 5 MG TABLET PO (08:24)
[2023-04-06] MEDS: LACTOBACILLUS ACIDOPHILUS 1 TABLET 1 TAB PO ×3 (08:27→19:14)
[2023-04-06] MEDS: POTASSIUM CHLORIDE 10 MEQ CAPSULE ER PO (08:29)
[2023-04-06] MEDS: RIVAROXABAN 10 MG TABLET PO (08:29)
[2023-04-06] MEDS: SENNOSIDES 1 TAB TABLET 2 TAB PO ×2 (08:29→21:30)
[2023-04-06] MEDS: SODIUM CHLORIDE 0.9 % (FLUSH) 10 ML SYRINGE 5 ML IVF ×2 (08:30→21:33)
--- NOTE | 2023-04-06 08:41 | P.ORPN_ITS ---
Subjective Subjective Time Seen by Provider: 07:40 Date Seen: 04/06/23 Principal diagnosis: status post right hip open reduction internal fixation Interval history: Bubba is comfortable at rest. With movement he has discomfort in the hip. He has a friend that will stay with him in his home upon discharge. Ortho Exam Narrative Exam Narrative: Alert and oriented x3. Patient is in no acute distress. Converses without labored breathing. Hearing is grossly intact. Ambulates with a Walker and toe-touch weight-bearing on the right. Dressing is intact. Mild soft tissue edema. No erythema or warmth or sign of infection. Bilateral calves are soft and nontender. CMS is intact right lower extremity. Const Vital Signs, click to edit/add: Vital Signs - 24 hr 04/05/23 09:06 04/05/23 09:45 04/05/23 11:26 Temperature 101.6 F H 99.2 F 98.8 F Pulse Rate Pulse Rate [Left Pulse Oximeter] 78 Respiratory Rate 16 Blood Pressure Blood Pressure [Right Arm] 103/69 Pulse Oximetry 94 Oxygen Delivery Method Room Air Oxygen Flow Rate 04/05/23 15:51 04/05/23 15:55 04/05/23 16:00 Temperature 99.5 F Pulse Rate 83 74 65 Pulse Rate [Left Pulse Oximeter] Respiratory Rate 16 16 16 Blood Pressure 117/75 117/75 109/73 Blood Pressure [Right Arm] Pulse Oximetry 100 100 100 Oxygen Delivery Method Non Rebreather Mask Non Rebreather Mask Non Rebreather Mask Oxygen Flow Rate 5 5 2 04/05/23 16:05 04/05/23 16:10 04/05/23 16:15 Temperature 100.6 F H Pulse Rate 69 70 70 Pulse Rate [Left Pulse Oximeter] Respiratory Rate 16 16 Blood Pressure 116/72 113/77 106/64 Blood Pressure [Right Arm] Pulse Oximetry 100 95 94 Oxygen Delivery Method Room Air Room Air Room Air Oxygen Flow Rate 04/05/23 16:30 04/05/23 16:30 04/05/23 16:45 Temperature 98.4 F 98.4 F 99.6 F Pulse Rate 73 Pulse Rate [Left Pulse Oximeter] 73 73 Respiratory Rate 16 16 16 Blood Pressure Blood Pressure [Right Arm] 116/69 116/69 114/60 Pulse Oximetry 92 93 Oxygen Delivery Method Room Air Room Air Room Air Oxygen Flow Rate 0 0 04/05/23 17:00 04/05/23 17:15 04/05/23 17:30 Temperature 99.6 F 99.5 F 99.3 F Pulse Rate Pulse Rate [Left Pulse Oximeter] 71 78 79 Respiratory Rate 16 16 16 Blood Pressure Blood Pressure [Right Arm] 112/66 107/82 97/65 Pulse Oximetry 93 93 92 Oxygen Delivery Method Room Air Room Air Room Air Oxygen Flow Rate 0 0 0 04/05/23 18:00 04/05/23 18:30 04/05/23 18:36 Temperature 99.5 F 99.5 F Pulse Rate Pulse Rate [Left Pulse Oximeter] 78 88 Respiratory Rate 16 16 Blood Pressure Blood Pressure [Right Arm] 113/70 99/68 Pulse Oximetry 91 91 91 Oxygen Delivery Method Room Air Room Air Oxygen Flow Rate 0 0 04/05/23 19:00 04/05/23 20:13 04/05/23 21:00 Temperature 99.1 F 98.3 F 98.6 F Pulse Rate Pulse Rate [Left Pulse Oximeter] 75 66 65 Respiratory Rate 16 16 16 Blood Pressure Blood Pressure [Right Arm] 95/64 104/69 103/69 Pulse Oximetry 92 93 94 Oxygen Delivery Method Room Air Room Air Room Air Oxygen Flow Rate 0 0 0 04/05/23 23:00 04/05/23 23:00 04/05/23 23:00 Temperature 98.6 F Pulse Rate Pulse Rate [Left Pulse Oximeter] 65 65 Respiratory Rate 16 16 Blood Pressure Blood Pressure [Right Arm] 103/69 Pulse Oximetry 94 94 Oxygen Delivery Method Room Air Oxygen Flow Rate 0 04/06/23 03:00 04/06/23 07:00 04/06/23 07:00 Temperature 98 F 98.8 F Pulse Rate Pulse Rate [Left Pulse Oximeter] 65 64 Respiratory Rate 16 16 Blood Pressure Blood Pressure [Right Arm] 112/67 123/75 Pulse Oximetry 93 96 96 Oxygen Delivery Method Room Air Room Air Oxygen Flow Rate 0 04/06/23 07:59 Temperature 98.8 F Pulse Rate Pulse Rate [Left Pulse Oximeter] Respiratory Rate Blood Pressure Blood Pressure [Right Arm] Pulse Oximetry Oxygen Delivery Method Oxygen Flow Rate Assessment and Plan Assessment and plan (1) Closed fracture of right hip: Problem details: - minimally displaced fracture of the right femoral neck - ortho aware and surgery is planned for 04/05 - Dave is overall healthy with Mets greater than 4, no history of anesthetic or surgical complications Status: Acute (2) Fever: Problem details: - noted 04/04 and 04/05; reassuring exam, CXR and CBC, mild elevated in pro- calcitonin - ddx: fracture, viral illness, UTI vs other bacterial illness - UA pending, Blood cultures obtained, continue to follow - anesthesia aware Status: Acute (3) Hypokalemia: Problem details: - likely iatrogenic (on Chlorthalidone) - replace and follow Status: Acute (4) Hypertension: Problem details: - continue Chlorthalidone with holding parameters given lower BPs Status: Chronic (5) C. difficile colitis: Problem details: - history of this in 2013. Has not had a recurrence, but notes BMs have rarely been normal since - patient will be getting antibiotics intraoperatively. Start lactobacillus TID Status: Inactive Plan Plan for discharge is today to home with his friend if they meet discharge criteria. DVT prophylaxis includes Xarelto 10 mg daily for total of 35 days, Chente stockings x1 month may remove for 1 hr per day, frequent ambulation Remove dressing 1 week. Observe wound and phone Orthopedics with any questions or concerns Use Ice on operative hip unrestricted. Return to clinic in 1 week with PA for a wound check Return to clinic in [address] Pabon Minimize narcotic use. Wean off and discontinue soon as possible. toe-touch weight-bearing right lower extremity for 4-6 weeks
--- NOTE | 2023-04-06 10:23 | P.IMPN_ITS ---
Progress Note: A&P Assessment and plan (1) Closed fracture of right hip: Problem details: - minimally displaced fracture of the right femoral neck - s/p Right hip fracture ORIF with Dr. Pabon on 04/05 Status: Acute (2) Fever: Problem details: - noted 04/04 and 04/05; reassuring exam, CXR and CBC, mild elevated in pro- calcitonin - ddx: fracture, viral illness, UTI vs other bacterial illness - UA +, urine and blood cultures currently NGTD Status: Acute (3) Hypokalemia: Problem details: - likely iatrogenic (on Chlorthalidone) - replace and follow Status: Acute (4) Hypertension: Problem details: - noted to have lower BPs during stay, Chlorthalidone has been held - anticipate moderate improvement on Cardura (may be able to control BP with this therapy) Status: Chronic (5) BPH w urinary obs/LUTS: Problem details: - difficulty initiating stream - discussed options: after discussion, will trial Cardura (may also help BP), plan to take whitman out prior to d/c to ensure successful voiding trial Status: Chronic (6) C. difficile colitis: Problem details: - history of this in 2013. Has not had a recurrence, but notes BMs have rarely been normal since - On empiric lactobacillus TID Status: Inactive Plan - per above - pain management and DVT ppx per Orthopedic Surgery team - therapies would like one more day to ensure stability, patient also awaiting blood and urine culture results - likely discharge home on 04/07 Subjective Date Seen: 04/06/23 Interval history: Surgery went well yesterday, no further fevers. VS and labs reassuring this morning. UA +, culture NGTD. On IV Ancef. Hesitant to remove catheter given long history LUTS (difficulty initiating urinary stream, incomplete emptying). Exam Narrative: Exam Narrative: GEN: Alert and oriented, sitting up in bed and speaking in full sentences. Nontoxic HEENT: EOMIs bilaterally, no scleral icterus CV: RRR, No concerning murmurs\ R: LCTA bilaterally without concerning wheezing or rales. Air movement adequate Skin: No concerning skin lesions or rashes on exposed skin Ext: Chente hose bilaterally Neuro: Nonfocal Psych: Appropriate Const: Vital Signs, click to edit/add: Vital Signs - 24 hr 04/05/23 11:26 04/05/23 15:51 04/05/23 15:55 Temperature 98.8 F 99.5 F Pulse Rate 83 74 Pulse Rate [Left P ulse Oximeter] 78 Respiratory Rate 16 16 16 Blood Pressure 117/75 117/75 Blood Pressure [Ri ght Arm] 103/69 Pulse Oximetry 94 100 100 Oxygen Delivery Me thod Room Air Non Rebreather Mas k Non Rebreather Mas k Oxygen Flow Rate 5 5 04/05/23 16:00 04/05/23 16:05 04/05/23 16:10 Temperature 100.6 F H Pulse Rate 65 69 70 Pulse Rate [Left P ulse Oximeter] Respiratory Rate 16 16 Blood Pressure 109/73 116/72 113/77 Blood Pressure [Ri ght Arm] Pulse Oximetry 100 100 95 Oxygen Delivery Me thod Non Rebreather Mas k Room Air Room Air Oxygen Flow Rate 2 04/05/23 16:15 04/05/23 16:30 04/05/23 16:30 Temperature 98.4 F 98.4 F Pulse Rate 70 73 Pulse Rate [Left P ulse Oximeter] 73 Respiratory Rate 16 16 16 Blood Pressure 106/64 Blood Pressure [Ri ght Arm] 116/69 116/69 Pulse Oximetry 94 92 Oxygen Delivery Me thod Room Air Room Air Room Air Oxygen Flow Rate 0 04/05/23 16:45 04/05/23 17:00 04/05/23 17:15 Temperature 99.6 F 99.6 F 99.5 F Pulse Rate Pulse Rate [Left P ulse Oximeter] 73 71 78 Respiratory Rate 16 16 16 Blood Pressure Blood Pressure [Ri ght Arm] 114/60 112/66 107/82 Pulse Oximetry 93 93 93 Oxygen Delivery Me thod Room Air Room Air Room Air Oxygen Flow Rate 0 0 0 04/05/23 17:30 04/05/23 18:00 04/05/23 18:30 Temperature 99.3 F 99.5 F 99.5 F Pulse Rate Pulse Rate [Left P ulse Oximeter] 79 78 88 Respiratory Rate 16 16 16 Blood Pressure Blood Pressure [Ri ght Arm] 97/65 113/70 99/68 Pulse Oximetry 92 91 91 Oxygen Delivery Me thod Room Air Room Air Room Air Oxygen Flow Rate 0 0 0 04/05/23 18:36 04/05/23 19:00 04/05/23 20:13 Temperature 99.1 F 98.3 F Pulse Rate Pulse Rate [Left P ulse Oximeter] 75 66 Respiratory Rate 16 16 Blood Pressure Blood Pressure [Ri ght Arm] 95/64 104/69 Pulse Oximetry 91 92 93 Oxygen Delivery Me thod Room Air Room Air Oxygen Flow Rate 0 0 04/05/23 21:00 04/05/23 23:00 04/05/23 23:00 Temperature 98.6 F Pulse Rate Pulse Rate [Left P ulse Oximeter] 65 65 Respiratory Rate 16 16 Blood Pressure Blood Pressure [Ri ght Arm] 103/69 Pulse Oximetry 94 94 Oxygen Delivery Me thod Room Air Oxygen Flow Rate 0 04/05/23 23:00 04/06/23 03:00 04/06/23 07:00 Temperature 98.6 F 98 F Pulse Rate Pulse Rate [Left P ulse Oximeter] 65 65 Respiratory Rate 16 16 Blood Pressure Blood Pressure [Ri ght Arm] 103/69 112/67 Pulse Oximetry 94 93 96 Oxygen Delivery Me thod Room Air Room Air Oxygen Flow Rate 0 0 04/06/23 07:00 04/06/23 07:59 Temperature 98.8 F 98.8 F Pulse Rate Pulse Rate [Left P ulse Oximeter] 64 Respiratory Rate 16 Blood Pressure Blood Pressure [Ri ght Arm] 123/75 Pulse Oximetry 96 Oxygen Delivery Me thod Room Air Oxygen Flow Rate Labs Labs: Laboratory Results - last 24 hr 04/05/23 04/05/23 04/06/23 06:15 12:10 06:18 WBC 11.30 H RBC 4.20 L Hgb 12.7 L Hct 37.4 MCV 89 MCH 30 MCHC 34 RDW Coeff of Alec 12.5 Plt Count 110 L Neut % (Auto) 92.0 H Lymph % (Auto) 5.1 L [place] % (Auto) 2.2 Eos % (Auto) 0.1 Baso % (Auto) 0.1 Neut # (Auto) 10.40 H Lymph # (Auto) 0.60 L [place] # (Auto) 0.20 Eos # (Auto) 0.00 Baso # (Auto) 0.00 Sodium 137 Potassium 4.0 Chloride 98 Carbon Dioxide 32 BUN 22 Creatinine 0.8 Estimated Creat Clear 67.09 Estimated GFR 96 Glucose 152 H Calcium 9.1 Procalcitonin 0.76 H 0.62 H Urine Color Amanda A Urine Appearance Slightly Cloudy A Urine pH 8.5 Ur Specific [place] 1.015 Urine Protein 2+ A Urine Glucose (UA) Negative Urine Ketones 3+ A Urine Blood 3+ A Urine Nitrite Positive A Urine Bilirubin 1+ A Urine Urobilinogen 1.0 Ur Leukocyte Esterase Negative Urine RBC 0-2 Urine WBC 25-50 A Ur Squamous Epith Cells Few Urine Bacteria Few A
--- NOTE | 2023-04-06 18:41 | PC.NURSE ---
End of Shift: Pt AO, pleasant and cooperative. Tolerating regular diet well. Pain well-controlled ranging between 0-3/10. Ambulating in room with walker, gait belt, and SBA. VS stable. Whitman catheter in place, patent, draining well. Plan to remove whitman tomorrow and possible discharge.
[2023-04-06] MEDS: DOXAZOSIN MESYLATE 1 MG TABLET 2 MG PO (21:32)
[2023-04-07 03:00] VITALS: BP 118/73; PULSE 68; RESP 18; TEMP 37; O2SAT 97
[2023-04-07] MEDS: ACETAMINOPHEN 325 MG TABLET 650 MG PO (05:43)
[2023-04-07] MEDS: OXYCODONE 5 MG TABLET PO ×2 (05:43→14:33)
--- NOTE | 2023-04-07 06:11 | PC.NURSE ---
Shift note: Pt is doing well ambulating with A1, walker and GB. Pain level of 5 maximum reported and only accepted 1x PRN medication. Vital signs stable. Pt confirmed that going home is going to be tough for him. 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 Pt agreed that if there is any option TCU or rehab center for recovery he will accept that. Nurse informed pt that the information will be carried to charge nurse to inform oncology social worker and MD. Charge-nurse informed. Dressing appeared clean and dry. Pt had adequate sleep.
[2023-04-07] MEDS: CEFAZOLIN 1 GM in 0.9 % SODIUM CHLORIDE Mini-bag 100 ML IVPB (06:45)
[2023-04-07] MEDS: SODIUM CHLORIDE 0.9 % (FLUSH) 10 ML SYRINGE 5 ML IVF (06:45)
[2023-04-07 06:46] LABS: Basophils Absolute Auto 0.01 K/uL (0.00-0.30); Basophils Percent Auto 0.1 % (0.0-3.0); Eosinophils Absolute Auto 0.39 K/uL (0.00-0.50); Eosinophils Percent Auto 5.3 % (0.0-7.0); Hematocrit 35.3 % (37.0-53.0); Hemoglobin* 12.2 gm/dL (13.5-17.5); Immature Granulocytes Abs Auto 0.01 K/uL (0.00-0.30); Immature Granulocytes Pct Auto 0.1 %; Lymphocytes Percent Auto 11.2 % (20-44); Mean Corpuscular HGB Conc 35 gm/dL (32-36); Mean Corpuscular Hemoglobin 31 pg (26-34); Mean Corpuscular Volume 89 fL (80-100); Monocytes Percent Auto 4.3 % (0.0-11.0); Platelet Count* 112 K/uL (140-440); RDW Coefficient of Variation % 12.6 % (11.5-15.5); Red Blood Count 3.99 m/uL (4.30-5.90); White Blood Count* 7.38 K/uL (4.50-11.00)
[2023-04-07] MEDS: 0.9 % SODIUM CHLORIDE 250 ml IV (06:46)
[2023-04-07 07:00] LABS: Slide Review Reflex No
[2023-04-07 07:01] LABS: Chloride* 99 mmol/L (96-114); Potassium* 3.2 mmol/L (3.6-5.1); Sodium* 135 mmol/L (135-149)
[2023-04-07 07:04] LABS: Blood Urea Nitrogen* 16 mg/dL (7-30); Carbon Dioxide* 30 mmol/L (20-32); Creatinine* 0.8 mg/dL (0.5-1.5); Est. Creatinine Clearance* 67.09; Estimated Glomerular Filt Rate 96 ml/min; Glucose* 101 mg/dL (60-115)
[2023-04-07 07:05] LABS: Calcium* 8.8 mg/dL (8.4-10.6)
--- NOTE | 2023-04-07 07:27 | PM.IMPN1 ---
Progress Note: A&P Assessment and plan (1) Closed fracture of right hip: Problem details: - minimally displaced fracture of the right femoral neck - s/p Right hip fracture ORIF with Dr. Pabon on 04/05 Status: Acute Assessment and Plan: 04/07: medically stable for discharge; patient lives alone and would like to explore TCU options (2) Fever: Problem details: - noted 04/04 and 04/05; reassuring exam, CXR and CBC, mild elevated in pro-calcitonin - ddx: fracture, viral illness, UTI vs other bacterial illness - UA +, urine and blood cultures currently NGTD Status: Acute (3) Hypokalemia: Problem details: - likely iatrogenic (on Chlorthalidone) - replace and follow Status: Acute (4) Hypertension: Problem details: - noted to have lower BPs during stay, Chlorthalidone has been held - anticipate moderate improvement on Cardura (may be able to control BP with this therapy) Status: Chronic (5) BPH w urinary obs/LUTS: Problem details: - difficulty initiating stream - discussed options: after discussion, will trial Cardura (may also help BP) 04/07; discussed with patient agreeable to DC whitman today Status: Chronic (6) C. difficile colitis: Problem details: - history of this in 2013. Has not had a recurrence, but notes BMs have rarely been normal since - On empiric lactobacillus TID Status: Inactive Subjective Date Seen: 04/07/23 Interval history: patient new to me no acute events overnight patient states he is nervous to DC home he lives alone he is most concerned about being able to ambulate to bathroom would like to talk to re TCU patient would like whitman removed Exam Narrative: Exam Narrative: Gen: no acute distress HEENT: NCAT EOMI mmm CV: RRR normal s1 s2 Lungs: CTAB Abd: Soft,nt, nd Neuro: Alert, oriented, CN grossly intact; nonfocal screening?exam Psych: appropriate affect MSK: age appropriate muscle mass Skin; Warm, dry no rash on face Const: Vital Signs, click to edit/add: Vital Signs - 24 hr 04/06/23 07:59 04/06/23 11:00 04/06/23 15:00 Temperature 98.8 F 98.7 F Pulse Rate [Left P ulse Oximeter] 68 68 Respiratory Rate 18 18 Blood Pressure [Ri ght Arm] 100/76 Pulse Oximetry 98 Oxygen Delivery Me thod Room Air Oxygen Flow Rate 04/06/23 15:00 04/06/23 19:00 04/06/23 23:00 Temperature 98.4 F 99 F Pulse Rate [Left P ulse Oximeter] 68 66 65 Respiratory Rate 18 18 18 Blood Pressure [Pa ght Arm] 103/66 104/68 Pulse Oximetry 97 94 Oxygen Delivery Me thod Nasal Cannula Nasal Cannula Oxygen Flow Rate 0 04/06/23 23:00 04/07/23 03:00 Temperature 98.6 F 98.6 F Pulse Rate [Left P ulse Oximeter] 65 68 Respiratory Rate 18 18 [facility] 118/68 118/73 Pulse Oximetry 94 97 Oxygen Delivery Me thod Nasal Cannula Nasal Cannula Oxygen Flow Rate 0 0 Labs Labs: Laboratory Results - last 24 hr 04/06/23 04/07/23 06:18 06:11 WBC 7.38 RBC 3.99 L Hgb 12.2 L Hct 35.3 L MCV 89 MCH 31 MCHC 35 RDW Coeff of Alec 12.6 Plt Count 112 L Neut % (Auto) 79.0 H Lymph % (Auto) 11.2 L [place] % (Auto) 4.3 Eos % (Auto) 5.3 Baso % (Auto) 0.1 Neut # (Auto) 5.80 Lymph # (Auto) 0.80 L [place] # (Auto) 0.30 Eos # (Auto) 0.39 Baso # (Auto) 0.01 Sodium 135 Potassium 3.2 L Chloride 99 Carbon Dioxide 30 BUN 16 Creatinine 0.8 Estimated Creat Clear 67.09 Estimated GFR 96 Glucose 101 Calcium 8.8 Procalcitonin 0.62 H
[2023-04-07 08:56] LABS: Magnesium* 1.8 mg/dL (1.5-2.6)
[2023-04-07] MEDS: POTASSIUM CHLORIDE 10 MEQ CAPSULE ER 30 MEQ PO (08:59)
[2023-04-07] MEDS: RIVAROXABAN 10 MG TABLET PO (09:00)
[2023-04-07] MEDS: POTASSIUM CHLORIDE 10 MEQ CAPSULE ER PO (09:00)
[2023-04-07] MEDS: SENNOSIDES 1 TAB TABLET 2 TAB PO (09:00)
[2023-04-07] MEDS: LACTOBACILLUS ACIDOPHILUS 1 TABLET 1 TAB PO (09:00)
[2023-04-07] MEDS: PANCREALIPASE (12,38,60) CAP 1 CAP PO (09:02)
[2023-04-07 09:16] VITALS: BP 131/69; PULSE 66; RESP 16; TEMP 37.3; O2SAT 97
--- NOTE | 2023-04-07 10:30 | PM.ORPN ---
Subjective Subjective Time Seen by Provider: 10:31 Date Seen: 04/07/23 Principal diagnosis: status post right hip open reduction internal fixation Interval history: Patient is nervous about discharging to home, feels it would be difficult to get around his home and into the bathroom with a walker and toe-touch weight-bearing. Social work is looking at prison facilities. Ortho Exam Narrative Exam Narrative: Alert and oriented x3. Patient is in no acute distress. Converses without labored breathing. Hearing is grossly intact. Ambulates with a walker. Toe-touch weight-bearing right lower extremity. Examination of the right hip shows very minimal soft tissue edema about the hip. No edema over the remaining of the right lower extremity. Dressing is intact. CMS intact right lower extremity. Bilateral calves are soft and nontender. No foot drop. Quad strength 5/5. Const Vital Signs, click to edit/add: Vital Signs - 24 hr 04/06/23 11:00 04/06/23 15:00 04/06/23 15:00 Temperature 98.7 F 98.4 F Pulse Rate [Left Pulse Oximeter] 68 68 68 Respiratory Rate 18 18 18 Blood Pressure [Right Arm] 100/76 103/66 Pulse Oximetry 98 97 Oxygen Delivery Method Room Air Nasal Cannula Oxygen Flow Rate 04/06/23 19:00 04/06/23 23:00 04/06/23 23:00 Temperature 99 F 98.6 F Pulse Rate [Left Pulse Oximeter] 66 65 65 Respiratory Rate 18 18 18 Blood Pressure [Right Arm] 104/68 118/68 Pulse Oximetry 94 94 Oxygen Delivery Method Nasal Cannula Nasal Cannula Oxygen Flow Rate 0 0 04/07/23 03:00 04/07/23 09:16 Temperature 98.6 F 99.2 F Pulse Rate [Left Pulse Oximeter] 68 66 Respiratory Rate 18 16 Blood Pressure [Right Arm] 118/73 131/69 Pulse Oximetry 97 97 Oxygen Delivery Method Nasal Cannula Room Air Oxygen Flow Rate 0 Assessment and Plan Assessment and plan (1) Closed fracture of right hip: Problem details: Date of surgery 04/05/2023 Status: Acute Assessment and Plan: Plan for discharge is to home versus prison facility when he meets discharge criteria. DVT prophylaxis includes Xarelto 10 mg daily for total of 35 days,Chente stockings x1 month may remove for 1 hr per day, frequent ambulation, toe-touch weight-bearing right lower extremity. Remove dressing 1 week. Observe wound and phone Orthopedics with any questions or concerns Use Ice on operative hip unrestricted. Return to clinic in 1 week with PA for a wound check Return to clinic in [address] Pabon Minimize narcotic use. Wean off and discontinue soon as possible. If Patient discharge's to prison facility, OT and PT daily
--- NOTE | 2023-04-07 11:15 | PC.SOCIAL ---
Discharge planning: Met with pt regarding d/c plan. Pt states he was hoping to go home from the hospital, but now thinks he will need a short term rehab stay due to his restrictions and living alone. Provided him with the resource list including [facility] ratings for facilities. Pt is requesting placement in [place] or [place]. [facility] and [facility] do not have availability for this week. Called and faxed information to [facility] and [facility] for evaluation for admit. sprinkler worker to follow up as needed.
[2023-04-07 11:58] VITALS: BP 107/84; PULSE 93; RESP 18; TEMP 37.2; O2SAT 93
[2023-04-07 14:06] VITALS: BP 106/64; PULSE 73; RESP 18; TEMP 37.2
--- NOTE | 2023-04-07 14:09 | PC.SOCIAL ---
Discharge plan: Pt has been accepted to [facility] for admission for short term rehab. Pt needs to arrive there by 3:00pm today. Met with pt who is aware and agrees with this plan. Pt has a friend visiting who can provide transportation in her vehicle. PAS completed and submitted PAS [id number]. RN and MD aware and agree with this plan.
[2023-04-07 14:43] VITALS: BP 106/64; PULSE 73; RESP 18; TEMP 37.2
--- NOTE | 2023-04-18 09:05 | PM.DS1 ---
DS: Providers Provider Date Seen: 04/07/23 Date of admission: 04/04/23 18:48 Primary care physician: Campbell Escoto MD Admitting Clinician: Sharon Johnston MD Consults: 04/04/23 17:14 Consult to Occupational Therapy [CONS] Routine Comment: Reason(s) for OT Consult:: Evaluate and Treat Any Restrictions?:: Non Wt Bearing Consult to Physical Therapy [CONS] Routine Comment: Reason(s) for PT Consult:: Evaluate and Treat Any Restrictions?:: Non Wt Bearing 04/04/23 18:48 Consult to Physician [CONS] Routine Comment: Consulting Provider: Coby Barraza Has provider been notified: Yes 04/05/23 16:39 Consult to Occupational Therapy [CONS] Routine Comment: Reason(s) for OT Consult:: Evaluate and Treat Any Restrictions?:: See Comment Comment: evaluate and treat Consult to Physical Therapy [CONS] Routine Comment: Reason(s) for PT Consult:: Evaluate and Treat Any Restrictions?:: Touch Toe Wt Bearing Consult to Hasher Machine Operator [CONS] Routine Comment: Reason for Consult:: Discharge Planning Needs 04/07/23 06:26 Consult to Hasher Machine Operator [CONS] Routine Comment: Pt home alone, TTWB, has ss ?S/needs Reason for Consult:: Social Service Consult Attending Physician on discharge: Joy Green MD Date of Discharge: 04/07/23 DS: Diagnosis Discharge Diagnosis (1) Closed fracture of right hip: Status: Acute Problem details: - R ORIF with Dr. Pabon on 04/05/2023 (2) Hypertension: Status: Chronic Problem details: - noted to have lower BPs during stay, Chlorthalidone held - anticipate moderate improvement on Cardura (may be able to control BP with this as monotherapy) (3) BPH w urinary obs/LUTS: Status: Chronic Problem details: - long history of difficulty initiating stream - discussed options: after discussion, will trial Cardura (may also help BP) - whitman placed during stay and removed on date of d/c DS: Summary Hospital Course Hospital Course: Bubba is a pleasant 67 yo male who presented to the hospital on 04/04 after a fall, sustaining a R femoral neck fracture. He had a R hip ORIF on 04/[address] Pabon of Orthopedic Surgery and did well during surgery and postoperatively. Notable findings during stay above. Patient medically appropriate for d/c to [address] [place] [address] for short-term rehab on 04/07/23. Status at Discharge Functional status at discharge: uses cane/walker Time Spent with Patient Time attestation: Total time spent providing and/or coordinating discharge services: Time spent: Less than 30 minutes Exam Narrative: Exam Narrative: Please see Dr. Cortes's note from 04/07, no changes Discharge Plan Discharge Disposition: [facility] Date of Admission: 04/04/23 18:48 Attending Provider on Discharge: Joy Green Consulting Providers: Coby Barraza Primary Care Provider: Campbell Escoto Condition: Stable Discharge Medications: New sennosides [Senna Lax] 8.6 mg Tablet 17.2 mg PO BID PRN (Reason: constipation) Qty: 100 0RF acetaminophen 500 mg capsule 500 - 1,000 mg PO Q6H MDD 4000mg per day PRN (Reason: pain) Qty: 100 0RF doxazosin 1 mg Tablet 2 mg PO HS Qty: 30 0RF potassium chloride 10 mEq Capsule, Extended Release 10 meq PO DAILY Qty: 7 0RF oxycodone 5 mg Tablet 2.5 - 10 mg PO Q2H PRN (Reason: Pain) Qty: 20 0RF Xarelto 10 mg Tablet 10 mg PO DAILY Qty: 30 0RF Continued ocb-cwub-kxczi-tday-eke-dwz-in 220 mg capsule 1 cap PO TIDWMEAL Rx Instructions: administer with a meal glucosamine-chondroitin [Cidaflex] 500-400 mg tablet 2 tab PO DAILY Discontinued chlorthalidone 25 mg tablet 25 mg PO DAILY potassium chloride 10 mEq tablet,ER particles/crystals 10 meq PO DAILY Discharge Orders: Discharge Order (Routine); Ordered 04/07/23 Ordered By: Joy Green Additional Instructions: Your Blood Pressure looked toby during hospital stay, so your Chlorthalidone was stopped - your potassium was still a little low, so I would take potassium for 5 more days, then stop. Have your potassium checked at your followup appointment with Dr. Escoto (make an appointment with him within one week of discharge from [facility]). I would make sure you keep a log of your Blood Pressure results at [facility] to share with Dr. Escoto at this appointment. We started a medication called Doxazosin for your prostate symptoms (can also lower blood pressure), this can be increased as needed with Dr. Escoto pending on your symptoms. You can also chat with him about following up with Urology. Activity Level: Toe Touch Wt Bearing Follow Up Appointments: Coby Barraza, CHAPINC [Physician Electronics Assembler And Tester] - 04/13/23 11:00 am ([facility] for follow-up.) Campbell Escoto MD [Primary Care Provider] - (pt to make appt with [facility] for followup after [facility] stay) Discharge Comments: Appointment needed, wound check with PA and Orthopedics next week Home health/OT/PT/nursing Admit to: SNF Discharge Potential: Good Length of Stay: <30 days Can use facility standing orders?: Yes Code Status: Full Code TEDs: Bilateral Knee Rehab Potential: Good Therapy: Physical Therapy and Occupational Therapy Therapy Orders: Evaluate and Treat, Gait Training and Total Hip Protocol Oxygen: No Urinary Catheter: No Glucose Checks: n/a Next INR: n/a Lab Orders: BMP at f/u with Dr. Escoto Orders are good >30 days: Yes Signature: Joy Green MD
== END 2023-04-07 14:40 | DRG 481 ==
LOC: ED 15:20 → MEDSURG 16:09
PROVIDERS: Family Medicine; Hospitalist; Orthopaedic Surgery; Admitting Provider Family Medicine; Emergency Provider Emergency Medicine; PCP Family Medicine; Visit Provider Family Medicine
PROC: 0QS604Z Reposition Right Upper Femur with Internal Fixation Device, Open Approach (ICD-10-PCS; principal; 2023-04-05 13:30)
DX: S72.001A Fracture of unspecified part of neck of right femur, initial encounter for closed fracture (principal); N13.8 Other obstructive and reflux uropathy; R50.9 Fever, unspecified; W01.0XXA Fall on same level from slipping, tripping and stumbling without subsequent striking against object, initial encounter; Y92.007 Garden or yard of unspecified non-institutional (private) residence as the place of occurrence of the external cause; S50.311A Abrasion of right elbow, initial encounter; I10 Essential (primary) hypertension; E87.6 Hypokalemia; T50.2X5A Adverse effect of carbonic-anhydrase inhibitors, benzothiadiazides and other diuretics, initial encounter; N40.1 Benign prostatic hyperplasia with lower urinary tract symptoms; N39.498 Other specified urinary incontinence; G89.18 Other acute postprocedural pain
CPT/HCPCS: 01210; 36415; 51701; 64450; 71045; 73502; 73552; 76000; 76942; 80048; 80076; 81003; 81015; 83735; 84145; 85025; 85610; 85730; 87040; 87086; 93005; 97110; 97116; 97161; 97165; 97530; 97535; 99140; 99284; 99285; A9270; C1713; J0690; J1100; J2250; J2270; J2405; J2704; J2795; J3480; J3490; J7050; J7120

== ENCOUNTER 2023-06-08 10:37 | Outpatient (RCR) | payer OTHER, SELFPAY ==
--- NOTE | 2023-06-10 14:43 | PT.OPEX ---
[facility] Outpatient Eval PT [facility] Outpatient Eval Start: 06/08/23 16:22 Freq: Status: Active Protocol: Document 06/08/23 16:22 ALEXANDRA (Rec: 06/08/23 16:23 ALEXANDRA [id number]) E-signed By José Barron DPT, MS Physical Therapy Outpatient Evaluation Insurance Information Recert Due Date 09/06/23 Insurance Name Medicare B Medical Diagnosis Status-post right femur fracture ORIF Treating Diagnosis R hip pain, decreased R LE flexibility, R LE weakness, imbalance and gait dysfunction . Subjective Subjective Pt presents to PT status-post R proximal femur ORIF on following a femoral fx after slipping on mud in his garden on 04/04/23. Significant improvement in pain levels and ability to walk with a 4WW and control his R LE over the past week. Spent first 3 weeks at [facility] since he lives alone and was TTWBing for 6 weeks post-op. Nervous to amb in his home with a SPC or walking stick since his R LE has felt like it was going to buckle occasionally. No issues with stairs using step- to pattern. Chief complaint is fatigue with amb with a 4WW. PSH include distal femur ORIF. PMH includes B knee OA and asthma. AGGR factors: carrying objects, amb >1-2 blocks, uneven surfaces, stair climbing (down>up). ALLEV factors: movement. Pt hopes to return to gardening and walking for exercise. 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 Instructed pt in proper gait mechanics and sequencing with a walking stick since he has one at home with a stable gait pattern following. Good response to progression of WBing LE strengthening, balance and stretching exercises with fatigue following. He will benefit from continued skilled therapy to address these limitations. Primary Functional Limitations Carrying objects, amb >1-2 blocks, uneven surfaces, stair climbing (down>up). Plan of Care Rehabilitation Potential Excellent Physical Therapy Goals Long-term goals to be completed in 10 weeks: 1. Pt will be independent and compliant with HEP 2. Pt will display improved R SLS >3 sec with minimal sway to decrease falls risk. 3. Pt will display improved right hip flex, ABD and ext strength >/= 4+/5 to improve quality of gait. 4. Pt will be able to walk >15 min with no elevation in R hip pain without an AD to improve cardiovascular fitness . 5. Pt will report >75% improvement in LEFS questionnaire to significantly improve tolerance to functional activities. Coordination/Communication With Referral Source Treatment Plan/Direct Interventions Joint Mobilization,Manual Therapy,Neuromuscular Re-ed, Therapeutic Exercises Frequency/Duration 1x per week for at least 6-10 visits, decreasing visit frequency as able. Patient Will Be Discharged From Therapy Completion of LTG(s),Skills Plateau,Independent w/HEP, Independently Progressing Evaluation Billing Untimed Code Treatment Minutes 25 Complexity Moderate Certification Information Initial Certification Date 06/08/23 Ending Certification Date 09/06/23 Provider Signature Shows Agreement With POC & Medical Necessity Physician Signature & Date Requested Please Sign/Date Here Physician Comment/Change : Physician NPI Number #
== END 2023-10-06 23:59 | disposition home or self-care (01) ==
PROVIDERS: PCP Family Medicine; Visit Provider Orthopaedic Surgery
DX: Z98.890 Other specified postprocedural states (principal); Z87.81 Personal history of (healed) traumatic fracture; Z51.89 Encounter for other specified aftercare; R26.9 Unspecified abnormalities of gait and mobility; R53.1 Weakness; R26.81 Unsteadiness on feet
CPT/HCPCS: 97110; 97116; 97161; 97162